=== PATIENT | male | born 1955 | race Caucasian/White ===

== ENCOUNTER 2023-10-15 08:32 | Outpatient (OUT) | payer MEDICARE, SELFPAY ==
--- NOTE | 2023-10-15 08:46 | VEIN_ITS ---
Patient Name: CHEYENNE GUERRERO MR#: [id number] : 1955 Exam Date: 10/15/2023 Ordering Doctor: DR KWAN ARAUJO M.D. RADIOLOGY REPORT PROCEDURE: [facility] - OFFICE VISIT INITIAL COMPARISON: None. PROGRESS NOTES: [age] year old male who presents with a 8 year history of mild leg cramping and pain. The patient's right leg symptoms are worse than the left. There has been a progression of symptoms over time. This increases with prolonged leg dependency. The patient describes an improvement with rest, elevation, and support stockings. The patient denies any signs and symptoms to suggest arterial ischemia. The patient describes a family history of varicose veins on maternal side. The patient has drinking and smoking history of : Former smoker; moderate alcohol consumption. Patient has a past medical history significant for: noncontributory. The patient denies a history of deep venous thrombus or pulmonary embolus. See separate history and physical for medication list. No prior treatment for varicose or spider veins. Current use of compression stockings. After review of nurse notes, history and physical exam I discussed at length the pathophysiology of venous hypertension and possible treatments, therapies and strategies available. We discussed at length the importance of elevating the lower extremities above the level of the heart, increased physical activity and compression stocking use. Ultrasound venous reflux study performed today was discussed at length with the patient. The report demonstrates slight dilation and mild reflux within the right great and small saphenous veins. Reflux within left great and small saphenous veins but no abnormal dilation.. PHYSICAL EXAM: The right leg demonstrates no significance varicosities, no significant spider veins, no ulceration, minimal edema, no skin discoloration. The left leg demonstrates no significant varicosities, no significant spider veins, no ulceration, minimal edema, no skin discoloration. Both thighs, legs and feet were symmetrically warm to the touch. Good posterior tibial and dorsalis pedis pulses were present bilaterally. VEIN/[facility] EST Comprehensive IMPRESSION: 1. Mild lower extremity venous insufficiency 2. Mild lower extremity varicose veins 3. No significant lower extremity subcutaneous edema 4. No flow significant arterial disease 5. CEAP: C2, EC, , MT PLAN: 1. Continued use of compression stockings 2. Elevated legs and increased physical activity symptomatic relief 3. Symptoms are mild and vein disease is mild at this time. Patient will continue with use of compression stockings and follow-up in future as needed. Nurse notes, history and physical were reviewed and confirmed, see attached forms. The nurse was present throughout the physical exam and consultation Dictated by: Juanito Fox M.D. on 10/15/2023 at 14:34 Approved by: Juanito Fox M.D. on 10/15/2023 at 14:39
--- NOTE | 2023-10-15 08:46 | VEIN_ITS ---
Patient Name: CHEYENNE GUERRERO MR#: [id number] : 1955 Exam Date: 10/15/2023 Ordering Doctor: DR KWAN ARAUJO M.D. RADIOLOGY REPORT PROCEDURE: [facility] EXT VENOUS REFLUX DIAN LMTD COMPARISON: None. INDICATIONS: I83.813 Pain due to varicose veins of bilateral legs TECHNIQUE: Duplex imaging of the lower extremity to assess the deep and superficial venous system for the presence of deep or superficial venous incompetence and to document the location and severity of disease. The study includes evaluation of the great saphenous vein (GSV), anterior accessory saphenous vein (AASV) and small saphenous vein (SSV). Patient scanned in reverse Trendelenburg and standing. FINDINGS: RIGHT LOWER EXTREMITY: Saphenofemoral Junction Reflux: Yes 6.5mm 0.6 sec GSV: Diam (mm) Reflux/ Time (sec) Proximal Thigh 7.2 Yes 0.6 Mid Thigh 3.4 Yes 0.6 Distal Thigh 5.0 Yes 0.7 Prox Calf 2.5 Yes 0.7 Mid Calf 1.8 Yes 0.3 Saphenopopliteal Junction Reflux: 5.5mm Yes 0.7 SSV: Proximal Calf 6.0 Yes 1.9 Mid Calf 2.9 Yes 2.7 AASV: Not present Proximal Thigh Mid Thigh Distal Thigh Thrombi: No acute or chronic thrombus. Compressibility: Normal. Flow: Mild deep venous reflux. Preforator: Dist/med lower leg 5.2 cm with 0.7s reflux. Prox/medial lower leg 2.9 mm with 0.9s reflux. Tech Note: Incompetent varicose vein distal medial lower leg measures 4.0 mm with 0.5s reflux. LEFT LOWER EXTREMITY: Saphenofemoral Junction Reflux: Yes 8.1 mm 0.8 sec GSV: Diam (mm) Reflux/Time (sec) Proximal Thigh 4.9 Yes 1.1 Mid Thigh 3.9 Yes 0.4 Distal Thigh 5.0 Yes 1.5 Prox Calf 3.1 Yes 4.7 Mid Calf 3.1 Yes 1.9 Saphenopopliteal Junction Relux: 2.7 mm Yes 0.2 SSV: Proximal Calf 4.2 Yes 0.7 Mid Calf 2.6 No AASV: Not present Proximal Thigh Mid Thigh Distal Thigh Thrombi: No acute or chronic thrombus. Compressibility: Normal. Flow: Moderate deep venous reflux. Patternmaker Helper: Mid medial lower leg 3.9 mm with 2.8s reflux. Tech Note: No significant varicose veins. CONCLUSION: 1. Mildly dilated and slightly incompetent right great saphenous and small saphenous veins 2. Abnormal reflux within left great and small saphenous veins, but no abnormal dilation. Dictated by: Juanito Fox M.D. on 10/15/2023 at 14:30 Approved by: Juanito Fox M.D. on 10/15/2023 at 14:34
== END 2023-10-15 08:33 | disposition home or self-care (01) ==
LOC: VC 08:32
PROVIDERS: PCP Radiology Diagnostic Radiology; Visit Provider Radiology Diagnostic Radiology
DX: I83.813 Varicose veins of bilateral lower extremities with pain (principal)
CPT/HCPCS: 93970; G0463

== ENCOUNTER 2024-03-07 07:52 | Outpatient (OUT) | payer MEDICARE, SELFPAY | END 2024-03-07 07:53 | disposition home or self-care (01) | LOC: SLEEP 07:52 | PROVIDERS: PCP Internal Medicine; Visit Provider Internal Medicine | DX: G47.33 Obstructive sleep apnea (adult) (pediatric) (principal); G47.39 Other sleep apnea; R53.83 Other fatigue; I10 Essential (primary) hypertension; I27.20 Pulmonary hypertension, unspecified; Z87.891 Personal history of nicotine dependence; R06.83 Snoring; G40.909 Epilepsy, unspecified, not intractable, without status epilepticus | CPT/HCPCS: 95806 ==